=== PATIENT | male | born 1975 | race Caucasian/White ===

== ENCOUNTER 2017-04-11 18:15 | Emergency (ER) | payer OTHER ==
--- NOTE | 2017-04-11 19:31 | ERPHSYRPT ---
- History of Present Illness Time Seen by Provider: 04/11/17 19:25 Source: patient Exam Limitations: no limitations Patient Subjective Stated Complaint: caught 2nd digit right hand in a press at home. Triage Nursing Assessment: lac to end of 2nd digit right hand. no active bleeding. involved nailbed. Physician History: The patient is a 41-year-old right-handed male who accidentally smashed the tip of his right index finger in a pneumatic press at home about 5 hours ago. There is some minor superficial laceration to the skin near the nail bed. There is mild swelling. His tetanus vaccination is up-to-date. He states he wants to know if he has a broken bone. Occurred: this afternoon, hours ago (5) Method of Injury: other (pneumatic press) Quality: constant, aching Extremities Pain Location: 2nd finger: right Modifying Factors: Improves With: nothing Associated Symptoms: none Allergies/Adverse Reactions: No Known Drug Allergies Allergy (Verified 04/11/17 19:19) Home Medications: Piroxicam [Feldene] 10 mg PO DAILY 09/03/16 [History] Hx Tetanus, Diphtheria Vaccination/Date Given: Yes Hx Influenza Vaccination/Date Given: Yes Hx Pneumococcal Vaccination/Date Given: Yes - Review of Systems Constitutional: No Fever, No Chills Eyes: No Symptoms Ears, Nose, & Throat: No Symptoms Respiratory: No Cough, No Dyspnea Cardiac: No Chest Pain, No Edema, No Syncope Abdominal/Gastrointestinal: No Abdominal Pain, No Nausea, No Vomiting, No Diarrhea Genitourinary Symptoms: No Dysuria Musculoskeletal: Injury Skin: Skin Lesions, No Rash Neurological: No Dizziness, No Focal Weakness, No Sensory Changes Psychological: No Symptoms Hematologic/Lymphatic: No Symptoms Immunological/Allergic: No Symptoms All Other Systems: Reviewed and Negative - Past Medical History Pertinent Past Medical History: Yes Neurological History: No Pertinent History ENT History: No Pertinent History Cardiac History: High Cholesterol, Hypertension, Myocardial Infarction ([place]), Other Respiratory History: No Pertinent History Endocrine Medical History: Diabetes Type II, Hypothyroidism Musculoskeletal History: Arthritis GI Medical History: Gallbladder Disease History: No Pertinent History Psycho-Social History: No Pertinent History Male Reproductive Disorders: No Pertinent History Other Medical History: "small cardiac episode" in 09/07/2012, seizure 10 years ago during illness - Past Surgical History Past Surgical History: Yes Neuro Surgical History: No Pertinent History Cardiac: No Pertinent History Respiratory: No Pertinent History Gastrointestinal: Cholecystectomy Genitourinary: No Pertinent History Musculoskeletal: Orthopedic Surgery Male Surgical History: No Pertinent History Other Surgical History: R knee surgery - Social History Smoking Status: Never smoker Exposure to second hand smoke: No Drug Use: none Patient Lives Alone: Yes - Nursing Vital Signs Nursing Vital Signs: Initial Vital Signs Temperature 97.9 F Temperature Source Oral Pulse Rate 68 Respiratory Rate 18 Blood Pressure [Left Arm] 166/83 Pain Intensity 6 - Physical Exam General Appearance: alert Eyes, Ears, Nose, Throat Exam: moist mucous membranes Neck Exam: non-tender, supple Cardiovascular/Respiratory Exam: chest non-tender, normal breath sounds, regular rate/rhythm, no respiratory distress Abdominal Exam: non-tender, No guarding Back Exam: normal inspection, No vertebral tenderness Shoulder Exam: normal inspection Elbow/Forearm Exam: normal inspection Wrist Exam: normal inspection Hand Exam: soft tissue tenderness (Examination of the right index finger shows a superficial skin tear at the cuticle. The fingernail has a small puncture wound to it. There is no hematoma beneath the fingernail. There is mild swelling of the pad of the right index finger. There is mild tenderness also to that region.) Neuro/Tendon Exam: normal sensation, normal motor functions Mental Status Exam: alert, oriented x 3, cooperative Skin Exam: warm, dry, laceration SpO2 Interpretation: normal SpO2: 97 Oxygen Delivery: Room Air - Radiology Exams Left Hand X-ray Interpretation: Interpreted by me, Negative, No Fracture Ordered Tests: Active Orders 24 hr Category Date Time Status FINGER(S) Stat Exams 04/11/17 19:34 Taken - Progress Progress: unchanged Counseled pt/family regarding: rad results - Departure Time of Disposition: 20:50 Departure Disposition: Home Clinical Impression: Finger contusion Condition: Stable Critical Care Time: No Additional Instructions: You have a contusion to the tip of your left index finger. You do not have any broken bones. Take Tylenol and ibuprofen as needed for pain.
[2017-04-11 21:42] VITALS: BP 160/76; PULSE 64; O2SAT 98
--- NOTE | 2017-04-12 09:02 | XRAY ---
Indication: Crush injury. Comparison: None 3 views of the right second finger obtained. No bony, articular, or soft tissue abnormalities.
== END 2017-04-11 21:42 | disposition home or self-care (01) ==
LOC: ED 18:15
DX: S60.021A Contusion of right index finger without damage to nail, initial encounter (principal); W31.89XA Contact with other specified machinery, initial encounter; I10 Essential (primary) hypertension; E78.00 Pure hypercholesterolemia, unspecified; I25.2 Old myocardial infarction; E11.9 Type 2 diabetes mellitus without complications; E03.9 Hypothyroidism, unspecified
CPT/HCPCS: 73140; 99282

== ENCOUNTER 2017-04-25 21:20 | Emergency (ER) | payer OTHER ==
[2017-04-25] MEDS ORDERED: BENADRYL 50 MG/ML IM ONE (22:06)
[2017-04-25] MEDS ORDERED: DELTASONE 20 MG PO ONE (22:06)
--- NOTE | 2017-04-25 22:07 | ERPHSYRPT ---
- History of Present Illness Time Seen by Provider: 04/25/17 21:55 Source: patient Exam Limitations: clinical condition Physician History: PATIENT WITH HISTORY OF HYPERTENSION COMPLAINS OF RECURRENT URTICARIA OVER THE PAST FEW MONTHS, HAS ASSOCIATED LIP SWELLING WITH RAISED RASH OVER EXTREMITIES. DENIES DIFFICULTY SWALLOWING OR BREATHING. STATES HE RAN OUT OF ATARAX DAYS AGO. Timing/Duration: today Quality: itchy Severity: moderate Location: generalized Possible Causes: no cause identified Modifying Factors: Improves With: antihistamine Associated Symptoms: change in skin texture, other (LIP SWELLING) Allergies/Adverse Reactions: No Known Drug Allergies Allergy (Verified 04/11/17 19:19) Home Medications: Piroxicam [Feldene] 10 mg PO DAILY 09/03/16 [History] Hx Tetanus, Diphtheria Vaccination/Date Given: Yes Hx Influenza Vaccination/Date Given: Yes Hx Pneumococcal Vaccination/Date Given: Yes - Review of Systems Constitutional: No Fever, No Chills Eyes: No Symptoms Ears, Nose, & Throat: Other (UPPER/LOWER LIP SWELLING) Respiratory: No Cough, No Dyspnea Cardiac: No Chest Pain, No Edema, No Syncope Abdominal/Gastrointestinal: No Abdominal Pain, No Nausea, No Vomiting, No Diarrhea Genitourinary Symptoms: No Dysuria Musculoskeletal: No Back Pain, No Neck Pain Skin: Skin Lesions, No Rash Neurological: No Dizziness, No Focal Weakness, No Sensory Changes Psychological: No Symptoms Endocrine: No Symptoms All Other Systems: Reviewed and Negative - Past Medical History Pertinent Past Medical History: Yes Neurological History: No Pertinent History ENT History: No Pertinent History Cardiac History: High Cholesterol, Hypertension, Myocardial Infarction ([place]), Other Respiratory History: No Pertinent History Endocrine Medical History: Diabetes Type II, Hypothyroidism Musculoskeletal History: Arthritis GI Medical History: Gallbladder Disease History: No Pertinent History Psycho-Social History: No Pertinent History Male Reproductive Disorders: No Pertinent History Other Medical History: "small cardiac episode" in 09/07/2012, seizure 10 years ago during illness - Past Surgical History Past Surgical History: Yes Neuro Surgical History: No Pertinent History Cardiac: No Pertinent History Respiratory: No Pertinent History Gastrointestinal: Cholecystectomy Genitourinary: No Pertinent History Musculoskeletal: Orthopedic Surgery Male Surgical History: No Pertinent History Other Surgical History: R knee surgery - Social History Smoking Status: Never smoker Exposure to second hand smoke: No Drug Use: none Patient Lives Alone: Yes - Nursing Vital Signs Nursing Vital Signs: Initial Vital Signs Temperature 97.8 F 04/25/17 22:13 Pulse Rate 68 04/25/17 22:13 Respiratory Rate 16 04/25/17 22:13 Blood Pressure 145/99 04/25/17 22:13 O2 Sat by Pulse Oximetry 98 04/25/17 22:13 Pain Scale Pain Intensity 0 - Physical Exam General Appearance: no apparent distress, alert Eye Exam: PERRL/EOMI, eyes nml inspection Ears, Nose, Throat Exam: normal ENT inspection, pharynx normal, moist mucous membranes, other (LEFT TO MIDLINE LIP SWELLING UPPER AND LOWER LIPS, NO POST PHARYNGEAL ANGIOEDEMA) Neck Exam: normal inspection, non-tender, supple, full range of motion Respiratory Exam: normal breath sounds, lungs clear, No respiratory distress Cardiovascular Exam: regular rate/rhythm, normal heart sounds Gastrointestinal/Abdomen Exam: soft, mass, No tenderness Back Exam: normal inspection, normal range of motion, No CVA tenderness, No vertebral tenderness Extremity Exam: normal inspection, normal range of motion Neurologic Exam: alert, oriented x 3, cooperative, normal mood/affect, sensation nml, No motor deficits Skin Exam: normal color, warm, dry, rash (MILD ELEVATED LESIONS OVER EXTREMITIES ) SpO2 Interpretation: normal Ordered Tests: Active Orders 24 hr Category Date Time Status Ice Chips Only ROUTINE Care 04/25/17 22:27 Active Medication Summary Discontinued Medications Generic Name Dose Route Start Last Admin Trade Name Bubba PRN Reason Stop Dose Admin Diphenhydramine HCl 75 mg 04/25/17 22:06 04/25/17 22:12 Benadryl 50 Mg/Ml IM 04/25/17 22:07 75 mg STAT ONE Administration Diphenhydramine HCl Confirm 04/25/17 22:10 Benadryl 50 Mg/Ml Administered 04/25/17 22:11 Dose 100 mg .ROUTE .STK-MED ONE Prednisone 60 mg 04/25/17 22:06 04/25/17 22:13 Deltasone 20 Mg PO 04/25/17 22:07 60 mg STAT ONE Administration Prednisone Confirm 04/25/17 22:10 Deltasone 20 Mg Administered 04/25/17 22:11 Dose 60 mg .ROUTE .STK-MED ONE - Progress Progress Note: 04/25/17 22:39 PATIENT GIVEN BENADRYL 75MG IM AND PREDNISONE 60MG ORALLY Counseled pt/family regarding: diagnosis, need for follow-up - Departure Time of Disposition: 22:45 Departure Disposition: Home Clinical Impression: ACUTE URTICARIA Condition: Stable Critical Care Time: No Additional Instructions: APPLY ICE OVER LIP SWELLING EVERY 4 HOURS, 30 MINUTES FOR 48 HOURS. ATARAX 25MG , 1-2 TABLETS EVERY 4-6 HOURS NEEDED FOR ITCHING. 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 Prescriptions: Hydroxyzine HCl 25 mg [Atarax 25 mg] 1 - 2 tab PO Q4-6HPRN PRN #20 tablet PRN Reason: Itching
[2017-04-25] MEDS ORDERED: BENADRYL 50 MG/ML ONE (22:10)
[2017-04-25] MEDS ORDERED: DELTASONE 20 MG ONE (22:10)
[2017-04-25 22:15] VITALS: BP 145/99; PULSE 68; O2SAT 98
[2017-04-25] MEDS ORDERED: ATARAX 25 MG PO ONE (22:45)
[2017-04-25] MEDS ORDERED: ATARAX 25 MG ONE (22:57)
== END 2017-04-25 23:02 | disposition home or self-care (01) ==
LOC: ED 21:20
DX: L50.9 Urticaria, unspecified (principal)
CPT/HCPCS: 96372; 99282; 99284; J1200; A9270-GY; J7506

== ENCOUNTER 2017-12-15 19:44 | Emergency (ER) | payer OTHER, SELFPAY ==
[2017-12-15] MEDS ORDERED: Sodium Chloride 0.9% 1000 ML 1,000 ML IV STA ×3 (20:47→20:52)
[2017-12-15] MEDS ORDERED: Zofran 4 MG/2 ML VIAL IV ONE (20:50)
[2017-12-15] MEDS ORDERED: ROCEPHIN 1 Gm-D5w 50 ml Bag** 1 G/50 ML IVPB IV STA (20:51)
--- NOTE | 2017-12-15 20:56 | ERPHSYRPT ---
- History of Present Illness Time Seen by Provider: 12/15/17 20:53 Source: patient Exam Limitations: no limitations Patient Subjective Stated Complaint: aches, fever, cough, chest hurts while breathing Triage Nursing Assessment: Pt A&O x3, clear lung sounds, febrile, BP 149/101, has vomited, can't hold anything down Physician History: pt with cold symptoms 2 days now with vomiting and fever and tachy no chest pain but prior episode years ago coughing up clear and green plhegm Timing/Duration: day(s) Cough Quality/Degree: productive cough Possible Cause: no prior episodes Modifying Factors: Improves With: nothing Associated Symptoms: fever, cough Allergies/Adverse Reactions: No Known Drug Allergies Allergy (Verified 04/11/17 19:19) Hx Tetanus, Diphtheria Vaccination/Date Given: Yes Hx Influenza Vaccination/Date Given: Yes (08/2017) Hx Pneumococcal Vaccination/Date Given: Yes Immunizations Up to Date: Yes - Review of Systems Constitutional: Fever, Chills, Malaise Eyes: No Symptoms Ears, Nose, & Throat: No Symptoms Respiratory: Cough, No Dyspnea Cardiac: No Chest Pain, No Edema, No Syncope Abdominal/Gastrointestinal: Nausea, Vomiting, No Abdominal Pain, No Diarrhea Genitourinary Symptoms: No Dysuria Musculoskeletal: Myalgias, No Back Pain, No Neck Pain Skin: No Rash Neurological: No Dizziness, No Focal Weakness, No Sensory Changes Psychological: No Symptoms Endocrine: No Symptoms All Other Systems: Reviewed and Negative - Past Medical History Pertinent Past Medical History: Yes Neurological History: No Pertinent History ENT History: No Pertinent History Cardiac History: High Cholesterol, Hypertension, Myocardial Infarction ([place]), Other Respiratory History: No Pertinent History Endocrine Medical History: Diabetes Type II, Hypothyroidism Musculoskeletal History: Arthritis GI Medical History: Gallbladder Disease History: No Pertinent History Psycho-Social History: No Pertinent History Male Reproductive Disorders: No Pertinent History Other Medical History: "small cardiac episode" in 09/07/2012, seizure 10 years ago during illness - Past Surgical History Past Surgical History: Yes Neuro Surgical History: No Pertinent History Cardiac: No Pertinent History Respiratory: No Pertinent History Gastrointestinal: Cholecystectomy Genitourinary: No Pertinent History Musculoskeletal: Orthopedic Surgery Male Surgical History: No Pertinent History Other Surgical History: R knee surgery - Social History Smoking Status: Former smoker Exposure to second hand smoke: No Drug Use: none Patient Lives Alone: No - Nursing Vital Signs Nursing Vital Signs: Initial Vital Signs Temperature 100.2 F 12/15/17 20:25 Pulse Rate 117 H 12/15/17 20:25 Respiratory Rate 20 12/15/17 20:25 Blood Pressure 149/101 12/15/17 20:25 O2 Sat by Pulse Oximetry 93 L 12/15/17 20:25 Pain Scale Pain Intensity 4 - Physical Exam General Appearance: no apparent distress, alert Eye Exam: PERRL/EOMI, eyes nml inspection Ears, Nose, Throat Exam: normal ENT inspection, TMs normal, pharynx normal, moist mucous membranes Neck Exam: normal inspection, non-tender, supple, full range of motion Respiratory Exam: normal breath sounds, lungs clear, No respiratory distress Cardiovascular Exam: regular rate/rhythm, normal heart sounds Gastrointestinal/Abdomen Exam: soft, No tenderness Back Exam: normal inspection, No CVA tenderness, No vertebral tenderness Extremity Exam: normal inspection, normal range of motion Neurologic Exam: alert, oriented x 3, cooperative, normal mood/affect, sensation nml, No motor deficits Skin Exam: normal color, warm, dry, No rash Lymphatic Exam: No adenopathy SpO2: 94 Oxygen Delivery: Room Air - Course Nursing assessment & vital signs reviewed: Yes Ordered Tests: Active Orders 24 hr Category Date Time Status Clean Catch Urine Specimen STAT Care 12/15/17 20:47 Active EKG-ER Only STAT Care 12/15/17 20:47 Active IV Insertion STAT Care 12/15/17 20:47 Active Pulse Oximetry (ED) STAT Care 12/15/17 20:47 Active CHEST 2 VIEWS (PA AND LAT) Stat Exams 12/15/17 20:48 Completed CBC W DIFF Stat Lab 12/15/17 20:50 Completed CMP Stat Lab 12/15/17 20:50 Completed CULTURE, THROAT Stat Lab 12/15/17 22:00 Received Lactic Acid Stat Lab 12/15/17 20:47 Completed STREP SCREEN-BETA A Stat Lab 12/15/17 22:00 Completed TROPONIN Q3H Lab 12/15/17 20:50 Completed TROPONIN Q3H Lab 12/16/17 00:00 Ordered TROPONIN Q3H Lab 12/16/17 03:00 Ordered TROPONIN Q3H Lab 12/16/17 06:00 Ordered TROPONIN Q3H Lab 12/16/17 09:00 Ordered UA W/ MICROSCOPIC Stat Lab 12/15/17 22:00 Completed Medication Summary Discontinued Medications Generic Name Dose Route Start Last Admin Trade Name Bubba PRN Reason Stop Dose Admin Sodium Chloride 1,000 mls @ 999 mls/hr 12/15/17 20:47 12/15/17 21:03 Sodium Chloride 0.9% 1000 Ml IV 12/15/17 21:47 999 mls/hr .Q1H1M STA Administration Ceftriaxone Sodium/Dextrose 1 g in 50 mls @ 100 mls/hr 12/15/17 20:51 21:03 Rocephin 1 Gm-D5w 50 Ml Bag IV 12/15/17 21:20 100 mls/hr STAT STA Administration Sodium Chloride 1,000 mls @ 999 mls/hr 12/15/17 20:51 12/15/17 22:22 Sodium Chloride 0.9% 1000 Ml IV 12/15/17 21:51 999 mls/hr .Q1H1M STA Administration Sodium Chloride 1,000 mls @ 999 mls/hr 12/15/17 20:52 12/15/17 22:53 Sodium Chloride 0.9% 1000 Ml IV 12/15/17 21:52 999 mls/hr .Q1H1M STA Administration Sodium Chloride Confirm 12/15/17 21:02 Sodium Chloride 0.9% 1000 Ml Administered 12/15/17 21:03 Dose 1,000 mls @ ud .ROUTE .STK-MED ONE Ceftriaxone Sodium/Dextrose Confirm 12/15/17 21:02 Rocephin 1 Gm-D5w 50 Ml Bag Administered 12/15/17 21:03 Dose 1 g in 50 mls @ ud IV .STK-MED ONE Sodium Chloride Confirm 12/15/17 22:22 Sodium Chloride 0.9% 1000 Ml Administered 12/15/17 22:23 Dose 1,000 mls @ ud .ROUTE .STK-MED ONE Sodium Chloride Confirm 12/15/17 22:52 Sodium Chloride 0.9% 1000 Ml Administered 12/15/17 22:53 Dose 1,000 mls @ ud .ROUTE .STK-MED ONE Ondansetron HCl 4 mg 12/15/17 20:50 12/15/17 21:09 Zofran 4 Mg/2 Ml Vial IV 12/15/17 20:51 4 mg STAT ONE Administration Ondansetron HCl Confirm 12/15/17 21:02 Zofran 4 Mg/2 Ml Vial Administered 12/15/17 21:03 Dose 4 mg .ROUTE .STK-MED ONE Lab/Rad Data: Laboratory Result Diagrams 12/15/17 20:50 12/15/17 20:50 Laboratory Results 12/15/17 12/15/17 12/15/17 Range/Units 22:00 22:00 22:00 WBC (4.0-10.5) K/mm3 RBC (4.1-5.6) M/mm3 Hgb (12.5-18.0) gm/dl Hct (42-50) % MCV (78-100) fl MCH (26-32) pg MCHC (32-36) g/dl RDW (11.5-14.0) % Plt Count (150-450) K/mm3 MPV (6-9.5) fl Gran % (36.0-66.0) % Lymphocytes % (24.0-44.0) % Monocytes % (0.0-12.0) % Eosinophils % (0.00-5.0) % Basophils % (0.0-0.4) % Basophils # (0-0.4) Sodium (137-145) mmol/L Potassium (3.5-5.1) mmol/L Chloride (98-107) mmol/L Carbon Dioxide (22-30) mmol/L Anion Gap (5-15) MEQ/L BUN (9-20) mg/dL Creatinine (0.66-1.25) mg/dL Estimated GFR ML/MIN Glucose (74-106) mg/dL Lactic Acid (0.4-2.0) Calcium (8.4-10.2) mg/dL Total Bilirubin (0.2-1.3) mg/dL AST (17-59) U/L ALT (0-50) U/L Alkaline Phosphatase (38-126) U/L Troponin I (0.000-0.034) ng/mL Serum Total Protein (6.3-8.2) g/dL Albumin (3.5-5.0) g/dL Ur Collection Type CLEAN CATCH Urine Color YELLOW (YELLOW) Urine Appearance CLEAR (CLEAR) Urine pH 6.0 (5-6) Ur Specific [place] 1.015 (1.005-1.025) Urine Protein TRACE (Negative) Urine Ketones SMALL (NEGATIVE) Urine Blood NEGATIVE (0-5) Chava/ul Urine Nitrite NEGATIVE (NEGATIVE) Urine Bilirubin NEGATIVE (NEGATIVE) Urine Urobilinogen NORMAL (0-1) mg/dL Ur Leukocyte Esterase NEGATIVE (NEGATIVE) Ur Epithelial Cells RARE (FEW) /HPF Urine Culture Reflexed NO (NO) Urine Glucose 1000 (NEGATIVE) mg/dL Influenza Type A Ag NEGATIVE (NEGATIVE) Influenza Type B Ag NEGATIVE (NEGATIVE) RSV (PCR) NEGATIVE (Negative) Streptococcus Screen NEGATIVE (Negative) Specimen Received [id number] 12/15/17 12/15/17 12/15/17 Range/Units 20:50 20:50 20:50 WBC 11.9 H (4.0-10.5) K/mm3 RBC 5.37 (4.1-5.6) M/mm3 Hgb 15.8 (12.5-18.0) gm/dl Hct 45.2 (42-50) % MCV 84.2 (78-100) fl MCH 29.4 (26-32) pg MCHC 35.0 (32-36) g/dl RDW 13.0 (11.5-14.0) % Plt Count 223 (150-450) K/mm3 MPV 10.9 H (6-9.5) fl Gran % 77.5 H (36.0-66.0) % Lymphocytes % 7.6 L (24.0-44.0) % Monocytes % 10.3 (0.0-12.0) % Eosinophils % 4.0 (0.00-5.0) % Basophils % 0.6 (0.0-0.4) % Basophils # 0.07 (0-0.4) Sodium 136 L (137-145) mmol/L Potassium 4.4 (3.5-5.1) mmol/L Chloride 98 (98-107) mmol/L Carbon Dioxide 26 (22-30) mmol/L Anion Gap 15.6 H (5-15) MEQ/L BUN 11 (9-20) mg/dL Creatinine 0.96 (0.66-1.25) mg/dL Estimated GFR > 60 ML/MIN Glucose 264 H (74-106) mg/dL Lactic Acid (0.4-2.0) Calcium 9.2 (8.4-10.2) mg/dL Total Bilirubin 1.00 (0.2-1.3) mg/dL AST 48 (17-59) U/L ALT 79 H (0-50) U/L Alkaline Phosphatase 159 H (38-126) U/L Troponin I < 0.012 (0.000-0.034) ng/mL Serum Total Protein 7.9 (6.3-8.2) g/dL Albumin 4.2 (3.5-5.0) g/dL Ur Collection Type Urine Color (YELLOW) Urine Appearance (CLEAR) Urine pH (5-6) Ur Specific [place] (1.005-1.025) Urine Protein (Negative) Urine Ketones (NEGATIVE) Urine Blood (0-5) Chava/ul Urine Nitrite (NEGATIVE) Urine Bilirubin (NEGATIVE) Urine Urobilinogen (0-1) mg/dL Ur Leukocyte Esterase (NEGATIVE) Ur Epithelial Cells (FEW) /HPF Urine Culture Reflexed (NO) Urine Glucose (NEGATIVE) mg/dL Influenza Type A Ag (NEGATIVE) Influenza Type B Ag (NEGATIVE) RSV (PCR) (Negative) Streptococcus Screen (Negative) Specimen Received 12/15/17 Range/Units 20:47 WBC (4.0-10.5) K/mm3 RBC (4.1-5.6) M/mm3 Hgb (12.5-18.0) gm/dl Hct (42-50) % MCV (78-100) fl MCH (26-32) pg MCHC (32-36) g/dl RDW (11.5-14.0) % Plt Count (150-450) K/mm3 MPV (6-9.5) fl Gran % (36.0-66.0) % Lymphocytes % (24.0-44.0) % Monocytes % (0.0-12.0) % Eosinophils % (0.00-5.0) % Basophils % (0.0-0.4) % Basophils # (0-0.4) Sodium (137-145) mmol/L Potassium (3.5-5.1) mmol/L Chloride (98-107) mmol/L Carbon Dioxide (22-30) mmol/L Anion Gap (5-15) MEQ/L BUN (9-20) mg/dL Creatinine (0.66-1.25) mg/dL Estimated GFR ML/MIN Glucose (74-106) mg/dL Lactic Acid 1.8 (0.4-2.0) Calcium (8.4-10.2) mg/dL Total Bilirubin (0.2-1.3) mg/dL AST (17-59) U/L ALT (0-50) U/L Alkaline Phosphatase (38-126) U/L Troponin I (0.000-0.034) ng/mL Serum Total Protein (6.3-8.2) g/dL Albumin (3.5-5.0) g/dL Ur Collection Type Urine Color (YELLOW) Urine Appearance (CLEAR) Urine pH (5-6) Ur Specific [place] (1.005-1.025) Urine Protein (Negative) Urine Ketones (NEGATIVE) Urine Blood (0-5) Chava/ul Urine Nitrite (NEGATIVE) Urine Bilirubin (NEGATIVE) Urine Urobilinogen (0-1) mg/dL Ur Leukocyte Esterase (NEGATIVE) Ur Epithelial Cells (FEW) /HPF Urine Culture Reflexed (NO) Urine Glucose (NEGATIVE) mg/dL Influenza Type A Ag (NEGATIVE) Influenza Type B Ag (NEGATIVE) RSV (PCR) (Negative) Streptococcus Screen (Negative) Specimen Received - Progress Progress: improved, re-examined Air Movement: good Progress Note: 12/15/17 23:41 discussed findings with pt and that undetected pathology could be evolving but things look like walking pneumonia but he is at risk for cardiac as well, he choses DC with AB to f/u PCP and will return if not improving or symptoms of concern; Blood Culture(s) Obtained: No Antibiotics given: Yes Counseled pt/family regarding: lab results, diagnosis, need for follow-up, rad results - Departure Time of Disposition: 23:42 Departure Disposition: Home Clinical Impression: Hyperglycemia due to type 2 diabetes mellitus, Elevated LFTs, RML pneumonia Condition: Good Critical Care Time: No Referrals: SUSANA GARCIA [Primary Care Provider] - Instructions: Pneumonia, Adult (DC) Additional Instructions: your sugar and liver tests are elevated as previously and you should continue to see your Dr and recheck your pneumonia with your Dr also and return meantime if not improving; although this explains the chest pain and cardiac events are not suspected , your are at risk for heart disease and should return if any concerns and continue to follow with your Dr. Prescriptions: Azithromycin 250 mg [Zithromax 250 MG TABLET] 250 mg PO ZPACK #6 tablet
[2017-12-15] MEDS ORDERED: ROCEPHIN 1 Gm-D5w 50 ml Bag** 1 G/50 ML IVPB IV ONE (21:02)
[2017-12-15] MEDS ORDERED: Zofran 4 MG/2 ML VIAL ONE (21:02)
[2017-12-15] MEDS ORDERED: Sodium Chloride 0.9% 1000 ML 1,000 ML ONE ×3 (21:02→22:52)
[2017-12-15 21:14] LABS: BASOPHIL % 0.6 % (0.0-0.4); Basophil (Absolute #) 0.07 (0-0.4); Eosinophil (Absolute #) 0.48 (0-0.5); Granulocyte Absolute (ANC) 9.21 (1.4-6.9); Granulocytes % 77.5 % (36.0-66.0); Hematocrit 45.2 % (42-50); Hemoglobin 15.8 gm/dl (12.5-18.0); Lymphocytes % 7.6 % (24.0-44.0); Mean Cell Volume 84.2 fl (78-100); Mean Corpuscular Hemoglobin 29.4 pg (26-32); Mean Platelet Volume 10.9 fl (6-9.5); Monocyte (Absolute #) 1.23 (0.0-1.3); Monocytes % 10.3 % (0.0-12.0); Platelet Count 223 K/mm3 (150-450); Red Blood Count 5.37 M/mm3 (4.1-5.6); White Blood Count 11.9 K/mm3 (4.0-10.5)
[2017-12-15 21:31] LABS: ALBUMIN 4.2 g/dL (3.5-5.0); ALKALINE PHOSPHATASE 159 U/L (38-126); ANION GAP 15.6 MEQ/L (5-15); BLOOD UREA NITROGEN 11 mg/dL (9-20); CHLORIDE 98 mmol/L (98-107); Calcium 9.2 mg/dL (8.4-10.2); Carbon Dioxide 26 mmol/L (22-30); Creatinine 1 0.96 mg/dL (0.66-1.25); Glucose 264 mg/dL (74-106); Potassium 4.4 mmol/L (3.5-5.1); SGOT/AST 48 U/L (17-59); SGPT/ALT 79 U/L (0-50); SODIUM 136 mmol/L (137-145); Total Protein 7.9 g/dL (6.3-8.2)
--- NOTE | 2017-12-15 21:49 | XRAY ---
Indication: Fever and cough. Comparison: September 21, 2016. PA/lateral chest now demonstrates subtle right middle lobe infiltrate versus atelectasis. Remaining heart, lungs, and bony thorax unremarkable.
[2017-12-15 22:53] LABS: INFLUENZA A NEGATIVE (NEGATIVE); INFLUENZA B NEGATIVE (NEGATIVE); RESPIRATORY SYNCTIAL VIRUS NEGATIVE (Negative)
[2017-12-15 22:55] VITALS: O2SAT 94
[2017-12-15 23:00] LABS: Appearance CLEAR (CLEAR); Bilirubin NEGATIVE (NEGATIVE); Blood NEGATIVE Ery/ul (0-5); Glucose 1000 mg/dL (NEGATIVE); Ketones SMALL (NEGATIVE); Leukocyte Esterase NEGATIVE (NEGATIVE); Nitrite NEGATIVE (NEGATIVE); Protein,Urine Dip TRACE (Negative); Specific Gravity 1.015 (1.005-1.025); Urobilinogen NORMAL mg/dL (0-1)
[2017-12-15 23:02] LABS: Epithelial Cells RARE /HPF (FEW)
[2017-12-15] MEDS ORDERED: Zithromax 250 MG TABLET PO ONE (23:48)
[2017-12-16] MEDS ORDERED: Zithromax 250 MG TABLET ONE (00:02)
[2017-12-16 00:06] VITALS: BP 159/105; PULSE 99
== END 2017-12-16 00:16 | disposition home or self-care (01) ==
LOC: ED 19:44
DX: J18.9 Pneumonia, unspecified organism (principal); E11.65 Type 2 diabetes mellitus with hyperglycemia; R79.89 Other specified abnormal findings of blood chemistry
CPT/HCPCS: 36000; 36415; 71046; 80053; 81000; 83605; 84484; 85025; 87070; 87430; 87631; 93005; 96360; 96361; 96365; 99284; J0696; J2405; A9270-GY

== ENCOUNTER 2019-11-16 19:31 | Emergency (ER) | payer OTHER ==
--- NOTE | 2019-11-16 20:19 | ERPHSYRPT ---
- History of Present Illness Time Seen by Provider: 11/16/19 20:14 Source: patient Exam Limitations: no limitations Patient Subjective Stated Complaint: pt states he has a broken tooth on the rt lower jaw that has been hurting for the last week Triage Nursing Assessment: pt alert and oriented, answers questions approp. pt ambulatory with steady gait noted. respirations nonlabored with lungs cta. skin pink warm and dry. broken teeth noted to rt lower jaw. Physician History: pt is 44 yr old male with pain right lower tooth and cracke d tooth concerned for abscess - tender right lower bicuspid with percussion reproducing pain nontender supple digastric and anterior neck floor of mouth soft nontender, no pointing abscess to drain; swallowing OK airway intact; Timing/Duration: gradual onset Severity: moderate ENT Location: dental Prearrival Treatment: over the counter meds Modifying Factors: Improves With: nothing Associated Symptoms: jaw pain, tooth pain, No sore throat, No difficulty swallowing, No voice change Allergies/Adverse Reactions: No Known Drug Allergies Allergy (Verified 11/16/19 20:02) Home Medications: Insulin Lispro [Admelog] 0 unit SQ TID 11/16/19 [History] Liraglutide [Victoza 2-Etienne] 1.8 mg SQ DAILY 11/16/19 [History] Hx Tetanus, Diphtheria Vaccination/Date Given: Yes Hx Influenza Vaccination/Date Given: Yes Hx Pneumococcal Vaccination/Date Given: Yes Immunizations Up to Date: Yes - Review of Systems Constitutional: No Fever, No Chills Eyes: No Symptoms Ears, Nose, & Throat: Other (dental pain) Respiratory: No Cough, No Dyspnea Cardiac: No Chest Pain, No Edema, No Syncope Abdominal/Gastrointestinal: No Abdominal Pain, No Nausea, No Vomiting, No Diarrhea Genitourinary Symptoms: No Dysuria Musculoskeletal: No Back Pain, No Neck Pain Skin: No Rash Neurological: No Dizziness, No Focal Weakness, No Sensory Changes Psychological: No Symptoms Endocrine: No Symptoms All Other Systems: Reviewed and Negative - Past Medical History Pertinent Past Medical History: Yes Neurological History: No Pertinent History ENT History: No Pertinent History Cardiac History: High Cholesterol, Hypertension, Myocardial Infarction ([place]), Other Respiratory History: No Pertinent History Endocrine Medical History: Diabetes Type II, Hypothyroidism Musculoskeletal History: Arthritis GI Medical History: Gallbladder Disease History: No Pertinent History Psycho-Social History: No Pertinent History Male Reproductive Disorders: No Pertinent History Other Medical History: "small cardiac episode" in 09/07/2012, seizure 10 years ago during illness - Past Surgical History Past Surgical History: Yes Neuro Surgical History: No Pertinent History Cardiac: No Pertinent History Respiratory: No Pertinent History Gastrointestinal: Cholecystectomy Genitourinary: No Pertinent History Musculoskeletal: Orthopedic Surgery Male Surgical History: No Pertinent History Other Surgical History: R knee surgery - Social History Smoking Status: Former smoker Exposure to second hand smoke: No Drug Use: none Patient Lives Alone: No - Nursing Vital Signs Nursing Vital Signs: Initial Vital Signs Temperature 97.8 F 11/16/19 19:52 Pulse Rate 90 11/16/19 19:52 Respiratory Rate 18 11/16/19 19:52 Blood Pressure 190/120 11/16/19 19:52 O2 Sat by Pulse Oximetry 98 11/16/19 19:52 Pain Scale Pain Intensity 7 - Physical Exam General Appearance: no apparent distress, alert Eye Exam: bilateral eye: PERRL, EOMI Ear Exam: bilateral ear: auricle normal, canal normal, TM normal Nasal Exam: normal inspection Throat Exam: pharynx normal, dental tenderness, moist mucus membranes, No excessive drooling, No mandibular swelling, No maxillary swelling, No pharynx tenderness, No tonsillar exudate, No trismus, No voice changes Neck Exam: supple, trachea midline, No Kernig's sign, No meningismus Cardiovascular/Respiratory Exam: normal breath sounds, regular rate/rhythm Abdominal Exam: non-tender, soft Neurologic Exam: alert, oriented x 3, sensation nml, No motor deficits Skin Exam: normal color, warm, dry SpO2 Interpretation: normal SpO2: 98 - Course Nursing assessment & vital signs reviewed: Yes - Progress Progress: improved, re-examined Progress Note: 11/16/19 20:18 recheck bp 150/100 pt advised to f/u PCP; Counseled pt/family regarding: diagnosis, need for follow-up - Departure Departure Disposition: Home Clinical Impression: Dental abscess, Labile hypertension Condition: Good Critical Care Time: No Referrals: SUSANA GARCIA [Primary Care Provider] - Instructions: Tooth Decay, Adult (DC), Dental Pain (DC), Tooth Abscess (DC), High Blood Pressure in Adults Additional Instructions: followup with your to recheck blood pressure - see dentist as soon as possible - return meantime if any concerns, vomiting, increased pain swelling or trouble swallowing or fever; Prescriptions: Amox Tr/Potass Clav. 875 mg [Augmentin 875-125 Tablet] 875 mg PO BID #20 tablet Chlorhexidine Gluconate [Peridex] 118 ml MM P[facility]S #120 mouthwash
[2019-11-16] MEDS ORDERED: TORAdol 30 mg Injection IM ONE ×2 (20:25→20:27)
[2019-11-16] MEDS ORDERED: Augmentin 875-125 Tablet PO ONE (20:25)
[2019-11-16] MEDS ORDERED: Augmentin 875-125 Tablet ONE (20:27)
[2019-11-16] MEDS ORDERED: TORAdol 30 mg Injection ONE (20:27)
[2019-11-16 20:39] VITALS: BP 182/98; PULSE 98; O2SAT 99
== END 2019-11-16 20:51 | disposition home or self-care (01) ==
LOC: ED 19:31
DX: K04.7 Periapical abscess without sinus (principal); R09.89 Other specified symptoms and signs involving the circulatory and respiratory systems; I10 Essential (primary) hypertension; E78.00 Pure hypercholesterolemia, unspecified; I25.2 Old myocardial infarction; E11.9 Type 2 diabetes mellitus without complications; E03.9 Hypothyroidism, unspecified; Z79.899 Other long term (current) drug therapy
CPT/HCPCS: 96372; 99283; J1885; A9270-GY

== ENCOUNTER 2020-01-31 21:37 | Emergency (ER) | payer OTHER ==
[2020-01-31] MEDS ORDERED: OXYCODONE-ACETAMINOPHEN 10-325 PO STA (21:47)
[2020-01-31] MEDS ORDERED: OXYCODONE-ACETAMINOPHEN 10-325 ONE (21:49)
--- NOTE | 2020-01-31 21:53 | ERPHSYRPT ---
- History of Present Illness Time Seen by Provider: 01/31/20 21:48 Source: patient Exam Limitations: no limitations Physician History: This is a 44-year-old diabetic gentleman who has a history of hypertension and poor oral hygiene. He has been seen in this emergency department for poor dentition and dental infection. He was seen in November 2019 with fractured teeth on the right lower jaw. In the last week patient has noticed increasing pain in his left lower jaw and fractured tooth present. Pain was worse. He was seen by the outpatient clinic and was started on doxycycline antibiotics. He is taken 1 dose of this antibiotic. He has been using Tylenol and NSAID regimen. He complains of sudden onset of pain in this area when he stretched his jaw. Patient has taken his blood pressure medicine today. Patient states that when he is in pain his blood pressure increases. This was a similar scenario during his visit 2 months ago into this emergency department. Timing/Duration: abrupt onset Severity: moderate ENT Location: dental Prearrival Treatment: over the counter meds, prescription meds Allergies/Adverse Reactions: No Known Drug Allergies Allergy (Verified 11/16/19 20:02) Home Medications: Insulin Lispro [Admelog] 0 unit SQ TID 11/16/19 [History] Liraglutide [Victoza 2-Etienne] 1.8 mg SQ DAILY 11/16/19 [History] Hx Tetanus, Diphtheria Vaccination/Date Given: Yes Hx Influenza Vaccination/Date Given: Yes Hx Pneumococcal Vaccination/Date Given: Yes Travel Risk - International Travel Have you traveled outside of the country in past 3 weeks: No Have you or anyone close to you been diagnosed with or: No Do your reside in a community with a known COVID-19 case?: Yes If Yes where:: [facility] - Coronavirus Screening Has patient experienced Coronavirus symptoms: No - Review of Systems Constitutional: No Symptoms Eyes: No Symptoms Ears, Nose, & Throat: Other (Left incisor lower jaw dental pain) Respiratory: No Symptoms Cardiac: No Symptoms Abdominal/Gastrointestinal: No Symptoms Genitourinary Symptoms: No Symptoms Musculoskeletal: No Symptoms Skin: No Symptoms Neurological: No Symptoms Psychological: No Symptoms Endocrine: No Symptoms Hematologic/Lymphatic: No Symptoms Immunological/Allergic: No Symptoms All Other Systems: Reviewed and Negative - Past Medical History Pertinent Past Medical History: Yes Neurological History: No Pertinent History ENT History: No Pertinent History Cardiac History: High Cholesterol, Hypertension, Myocardial Infarction ([place]), Other Respiratory History: No Pertinent History Endocrine Medical History: Diabetes Type II, Hypothyroidism Musculoskeletal History: Arthritis GI Medical History: Gallbladder Disease History: No Pertinent History Psycho-Social History: No Pertinent History Male Reproductive Disorders: No Pertinent History Other Medical History: "small cardiac episode" in 09/07/2012, seizure 10 years ago during illness - Past Surgical History Past Surgical History: Yes Neuro Surgical History: No Pertinent History Cardiac: No Pertinent History Respiratory: No Pertinent History Gastrointestinal: Cholecystectomy Genitourinary: No Pertinent History Musculoskeletal: Orthopedic Surgery Male Surgical History: No Pertinent History Other Surgical History: R knee surgery - Social History Smoking Status: Former smoker Exposure to second hand smoke: No Drug Use: none Patient Lives Alone: No - Physical Exam General Appearance: mild distress, alert, anxiety Eye Exam: bilateral eye: normal inspection, PERRL, EOMI Ear Exam: bilateral ear: auricle normal Nasal Exam: normal inspection, No active bleeding Throat Exam: normal, pharynx normal, dental tenderness (Left lower incisor dental fracture. Gingival tenderness in the area of the fractured tooth no maxime abscess present) Neck Exam: normal inspection, non-tender, supple, full range of motion Cardiovascular/Respiratory Exam: chest non-tender Abdominal Exam: non-tender Neurologic Exam: alert, oriented x 3, cooperative Skin Exam: normal color, warm, dry SpO2 Interpretation: normal O2 Delivery: Room Air - Course Nursing assessment & vital signs reviewed: Yes Ordered Tests: Medication Summary Generic Name Dose Route Start Last Admin Trade Name Freq PRN Reason Stop Dose Admin Oxycodone/Acetaminophen 1 tab 01/31/20 21:47 Oxycodone-Acetaminophen 10-325 PO 01/31/20 21:48 STAT STA - Progress Progress: unchanged, pain not gone completely Counseled pt/family regarding: diagnosis, need for follow-up - Departure Departure Disposition: Home Clinical Impression: Fractured tooth, Pain due to dental caries Condition: Stable Critical Care Time: No Referrals: SUSANA GARCIA [Primary Care Provider] - Additional Instructions: Continue your antibiotic as prescribed. Continue your Tylenol and ibuprofen medication. Follow-up with the dentist for definitive care.
[2020-01-31 22:18] VITALS: BP 163/136; PULSE 94; O2SAT 97
== END 2020-01-31 22:18 | disposition home or self-care (01) ==
LOC: ED 21:37
DX: S02.5XXA Fracture of tooth (traumatic), initial encounter for closed fracture (principal); K02.9 Dental caries, unspecified; I10 Essential (primary) hypertension; E78.00 Pure hypercholesterolemia, unspecified
CPT/HCPCS: 99283; A9270-GY

== ENCOUNTER 2020-02-01 19:40 | Emergency (ER) | payer OTHER ==
[2020-02-01] MEDS ORDERED: Rocephin 1000 MG INJ IM ONE (20:02)
[2020-02-01] MEDS ORDERED: TORAdol 30 mg Injection IM ONE (20:03)
--- NOTE | 2020-02-01 20:09 | ERPHSYRPT ---
- History of Present Illness Time Seen by Provider: 02/01/20 19:51 Source: patient Exam Limitations: no limitations Patient Subjective Stated Complaint: pt states that lower incisor broke 2 weeks ago, pt states that he came to the er yesterday for the pain, pt went to [facility] care yesterday and was started on doxycycline 100 mg, pt states that he took 2 pills yesterday and 2 pills today, pt states that he is unable to keep medication or food down due to vomiting Triage Nursing Assessment: pt ambulated into the er, pt is axo x4, pt rates pain 5/10, c/o n/v, hypertensive, left incision is broke along with decay, c/o numbness to left jaw, c/o swelling to left jaw Physician History: 44 yo wm w toothache x10 days. Pt is currently on Doxycycline/Motrin from recent urgent care visit and ER visit last PM. He states pain is 7/10 and is worse w chewing. Pt has had nausea-vomiting/L facial pain/L facial edema. Fever is denied. Severity: severe ENT Location: mouth Prearrival Treatment: over the counter meds (Doxycycline) Modifying Factors: Improves With: other (Chewing) Associated Symptoms: denies symptoms Allergies/Adverse Reactions: Penicillins Allergy (Severe, Verified 01/31/20 21:52) Vomiting potassium Allergy (Severe, Verified 01/31/20 21:52) Nausea and Vomiting Home Medications: Insulin Lispro [Admelog] 0 unit SQ TID 11/16/19 [History] Liraglutide [Victoza 2-Etienne] 1.8 mg SQ DAILY 11/16/19 [History] Doxycycline Monohydrate 100 mg PO BID 02/01/20 [History] Hx Tetanus, Diphtheria Vaccination/Date Given: Yes Hx Influenza Vaccination/Date Given: Yes Hx Pneumococcal Vaccination/Date Given: Yes Travel Risk - International Travel Have you traveled outside of the country in past 3 weeks: No Have you or anyone close to you been diagnosed with or: No Do your reside in a community with a known COVID-19 case?: Yes If Yes where:: [place] - Coronavirus Screening Has patient experienced Coronavirus symptoms: No - Review of Systems Constitutional: No Symptoms Eyes: No Symptoms Ears, Nose, & Throat: Mouth Pain, Mouth Swelling, No Ear Pain, No Ear Discharge , No Hearing Changes, No Tinnitus, No Nose Pain, No Nose Congestion, No Nose Discharge, No Sinus Drainage, No Throat Swelling, No Hoarse Respiratory: No Symptoms Cardiac: No Symptoms Abdominal/Gastrointestinal: No Symptoms Genitourinary Symptoms: No Symptoms Musculoskeletal: No Symptoms Skin: No Symptoms Neurological: No Symptoms Psychological: No Symptoms Endocrine: No Symptoms Hematologic/Lymphatic: No Symptoms Immunological/Allergic: No Symptoms - Past Medical History Pertinent Past Medical History: Yes Neurological History: No Pertinent History ENT History: No Pertinent History Cardiac History: High Cholesterol, Hypertension, Myocardial Infarction ([place]), Other Respiratory History: No Pertinent History Endocrine Medical History: Diabetes Type II, Hypothyroidism Musculoskeletal History: Arthritis GI Medical History: Gallbladder Disease History: No Pertinent History Psycho-Social History: No Pertinent History Male Reproductive Disorders: No Pertinent History Other Medical History: "small cardiac episode" in 09/07/2012, seizure 10 years ago during illness - Past Surgical History Past Surgical History: Yes Neuro Surgical History: No Pertinent History Cardiac: No Pertinent History Respiratory: No Pertinent History Gastrointestinal: Cholecystectomy Genitourinary: No Pertinent History Musculoskeletal: Orthopedic Surgery Male Surgical History: No Pertinent History Other Surgical History: R knee surgery - Social History Smoking Status: Never smoker Exposure to second hand smoke: No Drug Use: none Patient Lives Alone: No Significant Family History: no pertinent family hx - Nursing Vital Signs Nursing Vital Signs: Initial Vital Signs Temperature 98.3 F 02/01/20 19:43 Pulse Rate 88 02/01/20 19:43 Respiratory Rate 16 02/01/20 19:43 Blood Pressure 212/128 02/01/20 19:43 O2 Sat by Pulse Oximetry 97 02/01/20 19:43 Pain Scale Pain Intensity 5 - Physical Exam Eye Exam: bilateral eye: normal inspection, PERRL, EOMI Ear Exam: bilateral ear: auricle normal, canal normal, TM normal Nasal Exam: normal inspection Throat Exam: pharynx normal, dental tenderness, mandibular swelling, moist mucus membranes, No foreign body, No maxillary swelling, No pharynx swelling, No pharynx tenderness, No tongue swollen, No tonsillar exudate, No tonsillar swelling, No trismus, No uvula swelling, No voice changes Neck Exam: normal inspection Cardiovascular/Respiratory Exam: normal breath sounds, regular rate/rhythm, heart sounds normal, No no ecchymosis, No no JVD, No no respiratory distress Abdominal Exam: non-tender, soft, no organomegaly Neurologic Exam: alert, oriented x 3, cooperative, ammonium nitrate neutralizer II-XII nml as tested, normal mood/affect, nml cerebellar function, sensation nml, No motor deficits, No sensory deficit, No disoriented, No confusion Skin Exam: normal color, warm, dry, No rash SpO2 Interpretation: normal SpO2: 97 O2 Delivery: Room Air Ordered Tests: Active Orders 24 hr Category Date Time Status Isolation, Initiate & Maintain Q4H Care 02/01/20 19:53 Active Medication Summary Generic Name Dose Route Start Last Admin Trade Name Freq PRN Reason Stop Dose Admin Ondansetron HCl 4 mg 02/01/20 20:25 02/01/20 20:27 Zofran Odt 4 Mg PO 03/02/20 20:24 4 mg Q4H PRN PRN Administration NAUSEA/VOMITING Discontinued Medications Generic Name Dose Route Start Last Admin Trade Name Freq PRN Reason Stop Dose Admin Ceftriaxone Sodium 1,000 mg 02/01/20 20:02 02/01/20 20:25 Rocephin 1000 Mg Inj IM 02/01/20 20:03 1,000 mg STAT ONE Administration Ceftriaxone Sodium Confirm 02/01/20 20:16 Rocephin 1000 Mg Inj Administered 02/01/20 20:17 Dose 1,000 mg .ROUTE .STK-MED ONE Clonidine 0.2 mg 02/01/20 20:34 02/01/20 20:41 Catapres 0.1 Mg PO 02/01/20 20:35 0.2 mg STAT ONE Administration Clonidine Confirm 02/01/20 20:38 Catapres 0.1 Mg Administered 02/01/20 20:39 Dose 0.2 mg .ROUTE .STK-MED ONE Hydromorphone HCl 1 mg 02/01/20 20:56 02/01/20 21:01 Hydromorphone 1 Mg/Ml Ampule IM 02/01/20 20:57 1 mg STAT ONE Administration Hydromorphone HCl Confirm 02/01/20 21:00 Hydromorphone 1 Mg/Ml Ampule Administered 02/01/20 21:01 Dose 1 mg .ROUTE .STK-MED ONE Ketorolac Tromethamine 60 mg 02/01/20 20:03 02/01/20 20:26 Toradol 30 Mg Injection IM 02/01/20 20:04 60 mg STAT ONE Administration Ketorolac Tromethamine Confirm 02/01/20 20:16 Toradol 30 Mg Injection Administered 02/01/20 20:17 Dose 60 mg .ROUTE .STK-MED ONE Lidocaine HCl Confirm 02/01/20 20:16 Xylocaine 1% Hcl 20 Ml Mdv Administered 02/01/20 20:17 Dose 3 ml .ROUTE .STK-MED ONE - Progress Progress Note: 02/01/20 20:10 60mg IM toradol/1gm IM rocephin 02/01/20 20:57 Minimal improvement w toradol so 1mg IM dilaudid given 02/01/20 21:22 Pain improved w 1mg IM rocephin. BP improved w 0.2 po clonidine. - Departure Departure Disposition: Home Clinical Impression: Dental abscess, Hypertension Condition: Stable Critical Care Time: No Referrals: SUSANA GARCIA [Primary Care Provider] - Additional Instructions: Dentist [facility] for tooth extraction. Follow up with family MD about blood pressure. Return to ER as needed Prescriptions: Ketorolac Tromethamine [Toradol] 10 mg PO Q8H PRN PRN #10 tablet PRN Reason: Pain
[2020-02-01] MEDS ORDERED: XYLOCAINE 1% HCL 20 ML MDV ONE (20:16)
[2020-02-01] MEDS ORDERED: Rocephin 1000 MG INJ ONE (20:16)
[2020-02-01] MEDS ORDERED: TORAdol 30 mg Injection ONE (20:16)
[2020-02-01] MEDS ORDERED: ZOFRAN ODT 4 MG PO PRN (20:25)
[2020-02-01] MEDS ORDERED: ZOFRAN ODT 4 MG ONE (20:26)
[2020-02-01] MEDS ORDERED: Catapres 0.1 MG PO ONE (20:34)
[2020-02-01] MEDS ORDERED: Catapres 0.1 MG ONE (20:38)
[2020-02-01] MEDS ORDERED: Hydromorphone 1 mg/ml Ampule IM ONE (20:56)
[2020-02-01] MEDS ORDERED: Hydromorphone 1 mg/ml Ampule ONE (21:00)
[2020-02-01 21:21] VITALS: BP 180/96; PULSE 70
[2020-02-01 21:26] VITALS: O2SAT 97
== END 2020-02-01 21:32 | disposition home or self-care (01) ==
LOC: ED 19:40
DX: K04.7 Periapical abscess without sinus (principal); I10 Essential (primary) hypertension; E78.00 Pure hypercholesterolemia, unspecified; I25.2 Old myocardial infarction; E03.9 Hypothyroidism, unspecified; E11.9 Type 2 diabetes mellitus without complications
CPT/HCPCS: 96372; 99284; J0696; J1170; J1885; Q0162; A9270-GY

== ENCOUNTER 2020-06-20 01:25 | Emergency (ER) | payer OTHER ==
[2020-06-20] MEDS ORDERED: Pepcid 20 MG VIAL IV ONE ×2 (01:52→02:25)
[2020-06-20] MEDS ORDERED: Sodium Chloride 0.9% 1000 ML 1,000 ML IV STA (01:52)
[2020-06-20] MEDS ORDERED: MORPHINE SULFATE 4 MG INJ IV ONE (01:52)
[2020-06-20] MEDS ORDERED: Zofran 4 MG/2 ML VIAL IV ONE (01:52)
--- NOTE | 2020-06-20 01:59 | ERPHSYRPT ---
- History of Present Illness Time Seen by Provider: 06/20/20 01:46 Historian: patient Exam Limitations: no limitations Physician History: 44 years old male with history of hypertension presented in the ER with chief complaint of sudden onset feeling dizzy and lightheaded yesterday afternoon followed by nausea and multiple episodes of nonprojectile, nonbilious vomiting with no hematemesis. He is complaining of generalized abdominal pain sharp to cramping in nature, aggravated with vomiting and no significant relieving factors. Patient feels dehydrated and is not able to hold anything down. Denies any fever or chills but feels fatigued and tired with no energy to do any routine activities. Because of repeated vomiting complaining of some burning sensation retrosternally and in the right chest. No shortness of breath or cough reported. Has some headache but no neck stiffness or pain. Timing/Duration: yesterday, gradual onset, worse Activities at Onset: rest Quality: cramping, sharpness Abdominal Pain Onset Location: generalized abdomen Pain Radiation: no radiation Severity of Pain-Max: moderate Severity of Pain-Current: moderate Modifying Factors: Improves With: vomiting Associated Symptoms: chest pain, fatigue, headache, nausea, vomiting, weakness, No fever/chills, No shortness of breath Previous symptoms: no prior history Allergies/Adverse Reactions: Penicillins Allergy (Severe, Verified 01/31/20 21:52) Vomiting potassium Allergy (Severe, Verified 01/31/20 21:52) Nausea and Vomiting Home Medications: Insulin Lispro [Admelog] 0 unit SQ TID 11/16/19 [History] Liraglutide [Victoza 2-Etienne] 1.8 mg SQ DAILY 11/16/19 [History] Hx Tetanus, Diphtheria Vaccination/Date Given: Yes Hx Influenza Vaccination/Date Given: Yes Hx Pneumococcal Vaccination/Date Given: Yes - Review of Systems Constitutional: Fatigue, Malaise, Weakness Eyes: No Symptoms Ears, Nose, & Throat: No Symptoms Respiratory: No Symptoms Cardiac: Chest Pain Abdominal/Gastrointestinal: Abdominal Pain, Nausea, Vomiting Genitourinary Symptoms: No Symptoms Musculoskeletal: Myalgias Skin: No Symptoms Neurological: Dizziness, Headache Psychological: No Symptoms Endocrine: No Symptoms Hematologic/Lymphatic: No Symptoms Immunological/Allergic: No Symptoms - Past Medical History Pertinent Past Medical History: Yes Neurological History: No Pertinent History ENT History: No Pertinent History Cardiac History: High Cholesterol, Hypertension, Myocardial Infarction ([place]), Other Respiratory History: No Pertinent History Endocrine Medical History: Diabetes Type II, Hypothyroidism Musculoskeletal History: Arthritis GI Medical History: Gallbladder Disease History: No Pertinent History Psycho-Social History: No Pertinent History Male Reproductive Disorders: No Pertinent History Other Medical History: "small cardiac episode" in 09/07/2012, seizure 10 years ago during illness - Past Surgical History Past Surgical History: Yes Neuro Surgical History: No Pertinent History Cardiac: No Pertinent History Respiratory: No Pertinent History Gastrointestinal: Cholecystectomy Genitourinary: No Pertinent History Musculoskeletal: Orthopedic Surgery Male Surgical History: No Pertinent History Other Surgical History: R knee surgery - Social History Smoking Status: Never smoker Exposure to second hand smoke: No Drug Use: none Patient Lives Alone: No Significant Family History: no pertinent family hx - Nursing Vital Signs Nursing Vital Signs: Initial Vital Signs Temperature 98.4 F 06/20/20 02:02 Pulse Rate 99 H 06/20/20 02:02 Respiratory Rate 16 06/20/20 02:02 Blood Pressure 195/123 06/20/20 02:02 O2 Sat by Pulse Oximetry 96 06/20/20 02:02 Pain Scale Pain Intensity 3 - Physical Exam General Appearance: no apparent distress Eye Exam: PERRL/EOMI, eyes nml inspection Ears, Nose, Throat Exam: normal ENT inspection, TMs normal, pharynx normal Neck Exam: normal inspection, non-tender, supple, full range of motion Respiratory Exam: normal breath sounds, lungs clear Cardiovascular Exam: regular rate/rhythm, normal heart sounds Gastrointestinal/Abdomen Exam: soft, normal bowel sounds, tenderness (Lysed) Back Exam: normal inspection, normal range of motion Extremity Exam: normal inspection, normal range of motion Neurologic Exam: alert, oriented x 3, cooperative, 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, normal mood/affect, nml cerebellar function, nml station & gait, sensation nml Skin Exam: normal color SpO2 Interpretation: normal O2 Delivery: Room Air Ordered Tests: Active Orders 24 hr Category Date Time Status EKG-ER Only STAT Care 06/20/20 01:52 Active IV Insertion STAT Care 06/20/20 01:52 Active NPO (ED) STAT Care 06/20/20 01:52 Active ABDOMEN AND PELVIS W/0 CONTRAS [CT] Stat Exams 06/20/20 01:53 Taken CHEST 1 VIEW (PORTABLE) Stat Exams 06/20/20 01:52 Taken AMYLASE Stat Lab 06/20/20 02:01 Completed CBC W DIFF Stat Lab 06/20/20 02:01 Completed CMP Stat Lab 06/20/20 02:01 Completed LIPASE Stat Lab 06/20/20 02:01 Completed MAGNESIUM Stat Lab 06/20/20 02:01 Completed TROPONIN Q3H Lab 06/20/20 02:01 Completed TROPONIN Q3H Lab 06/20/20 05:00 Ordered TROPONIN Q3H Lab 06/20/20 08:00 Ordered TROPONIN Q3H Lab 06/20/20 11:00 Ordered TROPONIN Q3H Lab 06/20/20 14:00 Ordered UA W/RFX UR CULTURE Stat Lab 06/20/20 02:03 Completed Medication Summary Discontinued Medications Generic Name Dose Route Start Last Admin Trade Name Freq PRN Reason Stop Dose Admin Clonidine 0.1 mg 06/20/20 03:00 06/20/20 03:03 Catapres 0.1 Mg PO 06/20/20 03:01 0.1 mg STAT ONE Administration Clonidine Confirm 06/20/20 03:01 Catapres 0.1 Mg Administered 06/20/20 03:02 Dose 0.1 mg .ROUTE .STK-MED ONE Diphenhydramine HCl 25 mg 06/20/20 02:59 06/20/20 03:03 Benadryl 50 Mg/Ml IV 06/20/20 03:00 25 mg STAT ONE Administration Diphenhydramine HCl Confirm 06/20/20 03:01 Benadryl 50 Mg/Ml Administered 06/20/20 03:02 Dose 50 mg .ROUTE .STK-MED ONE Famotidine 20 mg 06/20/20 01:52 06/20/20 02:28 Pepcid 20 Mg Vial IV 06/20/20 01:53 20 mg STAT ONE Administration Famotidine Confirm 06/20/20 02:25 Pepcid 20 Mg Vial Administered 06/20/20 02:26 Dose 20 mg IV .STK-MED ONE Sodium Chloride 1,000 mls @ 999 mls/hr 06/20/20 01:52 06/20/20 02:28 Sodium Chloride 0.9% 1000 Ml IV 06/20/20 02:52 999 mls/hr .Q1H1M STA Administration Sodium Chloride Confirm 06/20/20 02:25 Sodium Chloride 0.9% 1000 Ml Administered 06/20/20 02:26 Dose 1,000 mls @ ud .ROUTE .STK-MED ONE Ketorolac Tromethamine 30 mg 06/20/20 02:59 06/20/20 03:03 Toradol 30 Mg Injection IV 06/20/20 03:00 30 mg STAT ONE Administration Ketorolac Tromethamine Confirm 06/20/20 03:01 Toradol 30 Mg Injection Administered 06/20/20 03:02 Dose 30 mg .ROUTE .STK-MED ONE Morphine Sulfate 4 mg 06/20/20 01:52 06/20/20 02:28 Morphine Sulfate 4 Mg Inj IV 06/20/20 01:53 Not Given STAT ONE Ondansetron HCl 4 mg 06/20/20 01:52 06/20/20 02:27 Zofran 4 Mg/2 Ml Vial IV 06/20/20 01:53 4 mg STAT ONE Administration Ondansetron HCl Confirm 06/20/20 02:25 Zofran 4 Mg/2 Ml Vial Administered 06/20/20 02:26 Dose 4 mg .ROUTE .STK-MED ONE Lab/Rad Data: Laboratory Result Diagrams 06/20/20 02:01 06/20/20 02:01 Laboratory Results 06/20/20 06/20/20 06/20/20 Range/Units 02:03 02:01 02:01 WBC (4.0-10.5) K/mm3 RBC (4.1-5.6) M/mm3 Hgb (12.5-18.0) gm/dl Hct (42-50) % MCV (78-100) fl MCH (26-32) pg MCHC (32-36) g/dl RDW (11.5-14.0) % Plt Count (150-450) K/mm3 MPV (7.5-11.0) fl Gran % (36.0-66.0) % Eos # (Auto) (0-0.5) Absolute Lymphs (auto) (1.0-4.6) Absolute Monos (auto) (0.0-1.3) Lymphocytes % (24.0-44.0) % Monocytes % (0.0-12.0) % Eosinophils % (0.00-5.0) % Basophils % (0.0-0.4) % Absolute Granulocytes (1.4-6.9) Basophils # (0-0.4) Sodium 133 L (137-145) mmol/L Potassium 4.2 (3.5-5.1) mmol/L Chloride 100 (98-107) mmol/L Carbon Dioxide 23 (22-30) mmol/L Anion Gap 14.4 (5-15) MEQ/L BUN 10 (9-20) mg/dL Creatinine 0.93 (0.66-1.25) mg/dL Estimated GFR > 60.0 ML/MIN Glucose 234 H (74-106) mg/dL Calcium 9.2 (8.4-10.2) mg/dL Magnesium 1.8 (1.6-2.3) mg/dL Total Bilirubin 1.60 H (0.2-1.3) mg/dL AST 35 (17-59) U/L ALT 56 H (0-50) U/L Alkaline Phosphatase 139 H (38-126) U/L Troponin I < 0.012 (0.000-0.034) ng/mL Serum Total Protein 8.1 (6.3-8.2) g/dL Albumin 4.4 (3.5-5.0) g/dL Amylase 67 (30-110) U/L Lipase 148 (23-300) U/L Urine Color YELLOW (YELLOW) Urine Appearance CLEAR (CLEAR) Urine pH 5.0 (5-6) Ur Specific [place] 1.021 (1.005-1.025) Urine Protein 30 (Negative) Urine Ketones SMALL (NEGATIVE) Urine Blood SMALL (0-5) Chava/ul Urine Nitrite NEGATIVE (NEGATIVE) Urine Bilirubin NEGATIVE (NEGATIVE) Urine Urobilinogen NEGATIVE (0-1) mg/dL Ur Leukocyte Esterase NEGATIVE (NEGATIVE) Urine WBC (Auto) 6-10 (0-5) /HPF Urine RBC (Auto) 0-2 (0-2) /HPF U Hyaline Cast (Auto) 0-2 (0-2) /LPF U Epithel Cells (Auto) NONE (FEW) /HPF Urine Bacteria (Auto) NONE SEEN (NEGATIVE) /HPF Urine Mucus (Auto) SLIGHT (NEGATIVE) /HPF Urine Culture Reflexed NO (NO) Urine Glucose >=500 (NEGATIVE) mg/dL 06/20/20 Range/Units 02:01 WBC 11.3 H (4.0-10.5) K/mm3 RBC 5.70 H (4.1-5.6) M/mm3 Hgb 17.0 (12.5-18.0) gm/dl Hct 48.7 (42-50) % MCV 85.4 (78-100) fl MCH 29.8 (26-32) pg MCHC 34.9 (32-36) g/dl RDW 12.8 (11.5-14.0) % Plt Count 221 (150-450) K/mm3 MPV 10.7 (7.5-11.0) fl Gran % 79.0 H (36.0-66.0) % Eos # (Auto) 0.06 (0-0.5) Absolute Lymphs (auto) 1.33 (1.0-4.6) Absolute Monos (auto) 0.92 (0.0-1.3) Lymphocytes % 11.8 L (24.0-44.0) % Monocytes % 8.2 (0.0-12.0) % Eosinophils % 0.5 (0.00-5.0) % Basophils % 0.5 (0.0-0.4) % Absolute Granulocytes 8.91 H (1.4-6.9) Basophils # 0.06 (0-0.4) Sodium (137-145) mmol/L Potassium (3.5-5.1) mmol/L Chloride (98-107) mmol/L Carbon Dioxide (22-30) mmol/L Anion Gap (5-15) MEQ/L BUN (9-20) mg/dL Creatinine (0.66-1.25) mg/dL Estimated GFR ML/MIN Glucose (74-106) mg/dL Calcium (8.4-10.2) mg/dL Magnesium (1.6-2.3) mg/dL Total Bilirubin (0.2-1.3) mg/dL AST (17-59) U/L ALT (0-50) U/L Alkaline Phosphatase (38-126) U/L Troponin I (0.000-0.034) ng/mL Serum Total Protein (6.3-8.2) g/dL Albumin (3.5-5.0) g/dL Amylase (30-110) U/L Lipase (23-300) U/L Urine Color (YELLOW) Urine Appearance (CLEAR) Urine pH (5-6) Ur Specific [place] (1.005-1.025) Urine Protein (Negative) Urine Ketones (NEGATIVE) Urine Blood (0-5) Chava/ul Urine Nitrite (NEGATIVE) Urine Bilirubin (NEGATIVE) Urine Urobilinogen (0-1) mg/dL Ur Leukocyte Esterase (NEGATIVE) Urine WBC (Auto) (0-5) /HPF Urine RBC (Auto) (0-2) /HPF U Hyaline Cast (Auto) (0-2) /LPF U Epithel Cells (Auto) (FEW) /HPF Urine Bacteria (Auto) (NEGATIVE) /HPF Urine Mucus (Auto) (NEGATIVE) /HPF Urine Culture Reflexed (NO) Urine Glucose (NEGATIVE) mg/dL - Progress Progress: improved, pain not gone completely, re-examined Counseled pt/family regarding: lab results, diagnosis, need for follow-up, rad results - Departure Departure Disposition: Home Clinical Impression: Viral syndrome, Uncontrolled hypertension Abdominal pain Qualifiers: Abdominal location: generalized Qualified Code(s): R10.84 - Generalized abdominal pain Condition: Stable Critical Care Time: No Referrals: SUSANA GARCIA [Primary Care Provider] - Follow Up with PCP (IN 2 DAYS FOR REEVALUATION) Instructions: Acute Abdomen (Belly Pain), Adult (DC), Nausea and Vomiting, Adult (DC), High Blood Pressure Emergencies Additional Instructions: Drink plenty of fluids. Take Phenergan as needed for nausea and vomiting. Take Tylenol as needed for abdominal pain. Monitor your blood pressure regularly and take your medications as recommended. Keep your blood pressure log and follow- up with your primary care. Return to ER for any worsening. Prescriptions: Promethazine HCl 25 mg [Phenergan 25 mg] 25 mg PO Q8H PRN PRN #10 tablet PRN Reason: Vomiting
[2020-06-20 02:04] LABS: Absolute Neutrophil Ct (ANC) 8.91 (1.4-6.9); BASOPHIL % 0.5 % (0.0-0.4); Basophil (Absolute #) 0.06 (0-0.4); Eosinophil % 0.5 % (0.00-5.0); Eosinophil (Absolute #) 0.06 (0-0.5); Hematocrit 48.7 % (42-50); Lymphocyte (Absolute #) 1.33 (1.0-4.6); Lymphocytes % 11.8 % (24.0-44.0); Mean Cell Volume 85.4 fl (78-100); Mean Corpuscular Hemoglobin 29.8 pg (26-32); Mean Corpuscular Hgb Concent. 34.9 g/dl (32-36); Mean Platelet Volume 10.7 fl (7.5-11.0); Monocyte (Absolute #) 0.92 (0.0-1.3); Monocytes % 8.2 % (0.0-12.0); Platelet Count 221 K/mm3 (150-450); Red Cell Distribution Width 12.8 % (11.5-14.0); White Blood Count 11.3 K/mm3 (4.0-10.5)
[2020-06-20 02:10] LABS: Appearance CLEAR (CLEAR); Bilirubin NEGATIVE (NEGATIVE); Blood SMALL Ery/ul (0-5); Glucose >=500 mg/dL (NEGATIVE); Hyaline Casts 0-2 /LPF (0-2); Ketones SMALL (NEGATIVE); Leukocyte Esterase NEGATIVE (NEGATIVE); Mucus SLIGHT /HPF (NEGATIVE); Nitrite NEGATIVE (NEGATIVE); Protein,Urine Dip 30 (Negative); RBC 0-2 /HPF (0-2); Specific Gravity 1.021 (1.005-1.025); Urobilinogen NEGATIVE mg/dL (0-1)
[2020-06-20 02:11] LABS: Bacteria NONE SEEN /HPF (NEGATIVE)
[2020-06-20 02:17] LABS: ALBUMIN 4.4 g/dL (3.5-5.0); ALKALINE PHOSPHATASE 139 U/L (38-126); AMYLASE 67 U/L (30-110); ANION GAP 14.4 MEQ/L (5-15); BLOOD UREA NITROGEN 10 mg/dL (9-20); CHLORIDE 100 mmol/L (98-107); Calcium 9.2 mg/dL (8.4-10.2); Carbon Dioxide 23 mmol/L (22-30); Creatinine 1 0.93 mg/dL (0.66-1.25); EST GLOMERULAR FILTRATION RATE > 60.0 ML/MIN; Glucose 234 mg/dL (74-106); LIPASE 148 U/L (23-300); MAGNESIUM 1.8 mg/dL (1.6-2.3); Potassium 4.2 mmol/L (3.5-5.1); SGOT/AST 35 U/L (17-59); SGPT/ALT 56 U/L (0-50); SODIUM 133 mmol/L (137-145); Total Protein 8.1 g/dL (6.3-8.2)
[2020-06-20 02:18] VITALS: O2SAT 96
[2020-06-20] MEDS ORDERED: Zofran 4 MG/2 ML VIAL ONE (02:25)
[2020-06-20] MEDS ORDERED: Sodium Chloride 0.9% 1000 ML 1,000 ML ONE (02:25)
[2020-06-20] MEDS ORDERED: TORAdol 30 mg Injection IV ONE (02:59)
[2020-06-20] MEDS ORDERED: BENADRYL 50 MG/ML IV ONE (02:59)
[2020-06-20] MEDS ORDERED: Catapres 0.1 MG PO ONE (03:00)
[2020-06-20] MEDS ORDERED: TORAdol 30 mg Injection ONE (03:01)
[2020-06-20] MEDS ORDERED: Catapres 0.1 MG ONE (03:01)
[2020-06-20] MEDS ORDERED: BENADRYL 50 MG/ML ONE (03:01)
[2020-06-20 03:27] VITALS: BP 159/118; PULSE 84
--- NOTE | 2020-06-20 08:07 | XRAY ---
Indication: Right upper quadrant/epigastric pain and emesis. Multiple contiguous axial images obtained through the abdomen and pelvis without contrast as ordered. Comparison: None Lung bases are clear. Heart is not enlarged. Small hiatal hernia. Small fluid in distal esophagus presumed from gastroesophageal reflux. Noncontrasted stomach and bowel loops appear nonobstructed. Normal air-filled appendix. Previous cholecystectomy. No free fluid/air. Mild fatty hepatomegaly measuring 20.5 cm. Also 16 cm splenomegaly. Remaining liver, pancreas, spleen, adrenal glands, kidneys, ureters, bladder, and aorta appear unremarkable for noncontrast exam. Osseous structures intact with minimal/mild degenerative changes throughout the thoracolumbar spine. Impression: 1. Small hiatal hernia. Fluid in the distal esophagus presumed from gastroesophageal reflux. 2. Incidental fatty hepatomegaly and splenomegaly. 3. Remaining CT abdomen/pelvis without contrast exam is negative. Comment: Preliminary interpretation was made by [facility]. No critical discrepancy.
--- NOTE | 2020-06-20 08:07 | XRAY ---
Indication: Emesis. Hypertension. Comparison: March 27, 2020. Portable apical lordotic chest again demonstrates normal heart and lungs. Bony thorax intact again with minimal degenerative changes. No new/acute findings.
== END 2020-06-20 03:36 | disposition home or self-care (01) ==
LOC: ED 01:25
DX: B34.9 Viral infection, unspecified (principal); I10 Essential (primary) hypertension; R10.84 Generalized abdominal pain
CPT/HCPCS: 36000; 36415; 71045; 74176; 80053; 81001; 82150; 83690; 83735; 84484; 85025; 93005; 96360; 96374; 96375; 99284; J1200; J1885; J2405; A9270-GY